=== PATIENT | male | born 1995 | race Caucasian/White ===

== ENCOUNTER 2019-07-04 06:29 | Emergency (ER) | payer OTHER ==
[~2019-07-04] VITALS: Ht 162.6 cm; Wt 85.3 kg
[2019-07-04 06:36] VITALS: Ht 162.6 cm; Wt 85.3 kg
[2019-07-04 07:11] VITALS: BP 114/48
== END 2019-07-04 07:11 | disposition home or self-care (01) ==
LOC: ED 06:29
DX: R07.89 Other chest pain (principal)

== ENCOUNTER 2019-07-20 10:35 | Emergency (ER) | payer OTHER ==
[~2019-07-20] VITALS: Ht 162.6 cm; Wt 83.9 kg
[2019-07-20 10:46] VITALS: Ht 162.6 cm; Wt 83.9 kg
[2019-07-20 12:07] VITALS: BP 119/52
== END 2019-07-20 12:17 | disposition home or self-care (01) ==
LOC: ED 10:35
DX: S20.219A Contusion of unspecified front wall of thorax, initial encounter (principal); X58.XXXA Exposure to other specified factors, initial encounter; Y93.89 Activity, other specified; Y92.89 Other specified places as the place of occurrence of the external cause; Y99.8 Other external cause status

== ENCOUNTER 2020-03-13 08:59 | Emergency (ER) | payer OTHER ==
[~2020-03-13] VITALS: Ht 162.6 cm; Wt 85.3 kg
[2020-03-13 09:06] VITALS: BP 139/98; Ht 162.6 cm; Wt 85.3 kg
== END 2020-03-13 11:20 | disposition home or self-care (01) ==
LOC: ED 08:59
DX: M94.0 Chondrocostal junction syndrome [Tietze] (principal)
CPT/HCPCS: Q0092

== ENCOUNTER 2020-03-14 07:33 | Emergency (ER) | payer OTHER ==
[~2020-03-14] VITALS: Ht 162.6 cm; Wt 63.0 kg
[2020-03-14 07:39] VITALS: BP 120/75; Ht 162.6 cm; Wt 63.0 kg
== END 2020-03-14 08:34 | disposition home or self-care (01) ==
LOC: ED 07:33
DX: Z13.9 Encounter for screening, unspecified (principal)